=== PATIENT | male | born 1970 | race Caucasian/White ===

== ENCOUNTER 2020-02-07 17:25 | Emergency (ER) | payer OTHER, SELFPAY ==
[2020-02-07 17:27] VITALS: BP 116/82; PULSE 100; RESP 15; TEMP 37.7; O2SAT 98; BMI 25.7
[2020-02-07 17:33] VITALS: BP 116/82; PULSE 100; RESP 15; TEMP 37.7; O2SAT 98
--- NOTE | 2020-02-07 17:33 | NURSING ---
NO OLD EKGS
--- NOTE | 2020-02-07 17:40 | EKG12_ITS ---
Test Reason : CP Blood Pressure : / mmHG Vent. Rate : 099 BPM Atrial Rate : 099 BPM P-R Int : 132 ms QRS Dur : 096 ms QT Int : 362 ms P-R-T Axes : 062 072 047 degrees QTc Int : 464 ms Sinus rhythm with Premature atrial complexes Otherwise normal ECG Confirmed by MICHAEL SESAY, PRINCESS ([id number]), graphics editor MIL VITALE ([id number]) on 02/11/2020 9:22:11 AM Referred By: Confirmed By:PRINCESS RODRIGUEZ MD
--- NOTE | 2020-02-07 17:41 | ED.DCSUM_ITS ---
- ER Visit Summary Date of Service: 02/07/20 Chief Complaint: Chest pain History of Present Illness: The patient is a 49 M who presents with chest pain that began today. Patient states it is gradually gotten worse throughout the day. Patient states his pain is over the substernal area. Patient states it is worse with exertion and better with rest. Patient describes it as a tightness and sharp pain. Patient admits to some shortness of breath with the pain. Patient denies any nausea or vomiting. Patient denies any diaphoresis. Patient denies any cough. Patient does admit to a recent fever of 100.6 at home. Patient denies any lightheadedness or dizziness. Patient denies any palpitations. Patient states he did have a COVID test done on 01/27/2020 and got the results on 01/30/2020 which were negative Physical Examination: Vital signs are stable. Patient is afebrile. Patient is in no acute distress. Oral mucosa is pink and moist. Neck is supple. Trachea is midline. There is no JVD noted. Heart was regular rate and rhythm. Lungs are clear and equal bilaterally. Abdomen is soft. Bowel sounds are normal. There is no tenderness. There is no rebound or guarding noted. Skin is warm dry. Cranial nerves II through XII are intact. There are no focal motor or sensory deficits noted. Extremities are intact. There is no calf tenderness or edema. There is no erythema or warmth of the lower legs. Test Results: EKG showed a normal sinus rhythm with a rate of 99. There are occasional PACs noted. There are no acute ST or T wave changes. CBC showed a mild anemia with a hemoglobin of 12.7 and hematocrit 37.8. Basic metabolic profile was normal. Troponin was normal. D-dimer was elevated at 3.14. Portable chest x-ray was obtained. There is no acute cardiopulmonary process. Because of the elevated d-dimer, CTA of the chest was obtained. There is no evidence of pulmonary embolism. There is no infiltrate noted. These were interpreted by the radiologist and reviewed by myself. Emergency Department Course and Treatment: Patient was given aspirin and sublingual nitroglycerin here in the emergency department. Patient declined any nitroglycerin tablets here in the emergency department but did take the aspirin. Patient has a HEART score of 3. Patient was advised that this is low risk for acute cardiac event. Patient was instructed to follow-up with his primary care physician in 5 to 7 days. Patient understood and was agreeable with the plan. All questions were answered. Disposition: Discharge home Impression: Chest pain of uncertain etiology This note was generated with [employer] dictation software. It may contain incorrect words, spelling, and punctuation that were not noted in review of the chart prior to signing ED Disposition - Plan for ED Patient: Disposition: Home or Assisted Living Diagnosis: Chest pain of uncertain etiology Instructions: ED Chest Pain Atypical Unkn Cause Referrals: NOT,DEFINED [NON-STAFF] - 5-7 Days
[2020-02-07 17:42] VITALS: O2SAT 100
--- NOTE | 2020-02-07 17:45 | RAD_ITS ---
STUDY: X-RAY CHEST REASON FOR EXAM: Male, 49 years old. CHEST PAIN. NO HX OF HEART ISSUES TECHNIQUE: Single AP portable view of the chest. COMPARISON: None. FINDINGS: manager monitoring leads are present. The lungs are clear and expanded. There is no demonstrated pleural abnormality. Normal size heart. Normal mediastinum and diego. Normal visualized pulmonary arteries. Normal visualized aortic arch and descending thoracic aorta. Normal visualized thoracic spine. Normal visualized ribs, clavicles, and shoulders. There is no demonstrated abnormality of the visualized soft tissue structures of the upper abdomen. RAD/Chest 1 View (Portable) IMPRESSION: Normal x-ray examination of the chest. Electronically Signed: Tin Napier MD at 18:03 EDT , Service support ,
[2020-02-07 17:46] LABS: Absolute Lymphocyte Count 1.22 X10^3/uL (0.83-4.51); Absolute Neutrophil Count 7.2 X10^3/uL (2.0-7.7); Basophil# 0.02 X10^3/uL; Basophil% 0.2 % (0-1); Eosinophils% 2.2 % (0-5); Hematocrit 37.8 % (40-54); Hemoglobin 12.7 g/dL (13.0-16.5); Lymphocyte # 1.22 X10^3/ul (4.0); Lymphocyte % 13.1 % (19-41); Mean Corp Hgb Conc 33.6 g/dL (32-36); Mean Corpuscular Hgb 29.5 pg (27.0-32.0); Mean Corpuscular Volume 87.9 fL (80-94); Mean Platelet Vol. 8.8 fl (6.2-12.0); Monocyte# 0.65 X10^3/uL; NRBC Flagged by Analyzer 0 % (0-5); Neutrophil # 7.17 X10^3/uL (2.7-7.7); Neutrophil % 77.3 % (47-70); Platelet Count 285 K/mm3 (150-450); RBC Distribution Width CV 11.9 % (11.6-14.6); RBC Distribution Width SD 38.1 fl (35.1-43.9); White Blood Count 9.3 K/mm3 (4.4-11.0)
[2020-02-07] MEDS: Aspirin 81 MG TAB.CHEW 324 MG PO (17:46)
[2020-02-07 18:03] LABS: Anion Gap 5 (5-15); BUN 16 mg/dL (7-18); BUN/Creat Ratio 14.4 RATIO (10-20); Calcium,Total 8.5 mg/dL (8.5-10.1); Chloride 103 mmol/L (98-107); Creatinine, Serum 1.11 mg/dL (0.70-1.30); D-Dimer Quantitative (DVT/PE) 3.14 FEU/ug/m (0.27-0.49); EST Glomerular Filtration Rate 75 mL/min (>60); Est Glom Filt Rate - Afr Amer 91 mL/min (>60); Estimated Creatinine Clearance 74.24 ml/min; Glucose 107 mg/dL (74-106); Potassium 3.7 mmol/L (3.5-5.1); Sodium Level 136 mmol/L (136-145)
--- NOTE | 2020-02-07 18:05 | CT_ITS ---
STUDY: CTA CHEST REASON FOR EXAM: Male, 49 years old. ELEVATED D-DIMER, STERNAL CP WITH EXERTION RADIATION DOSAGE (If Supplied By Facility): CTDIvol = ( 12.85 ) mGy, DLP = ( 375.99 ) mGycm TECHNIQUE: The examination was performed with the intravenous administration of IV 75mL [id number]-[id number]. Post-processing of the angiographic images was performed, with multiplanar reformation and 3D reconstruction. Individualized dose optimization techniques were used for this CT. COMPARISON: Portable chest February 07, 2020 FINDINGS: Normal enhancement of the main pulmonary artery and right and left pulmonary arteries. Normal enhancement of the bilateral peripheral pulmonary arteries. There is no demonstrated pulmonary embolism. Normal thoracic aorta and visualized great vessels. There is no demonstrated aortic dissection. Heart size is normal. There is tiny focus of calcification in left coronary artery. Normal mediastinum. Normal hilar regions. Normal visualized trachea and bronchi. The lungs are well expanded. There is minor atelectasis within the dependent portion lungs. There is no focal infiltration or pulmonary nodule. Normal pleura. Normal chest wall structures. Dorsal spine demonstrates moderate spondylosis Normal visualized upper abdomen. CT/CTA Chest W/WO Contrast IMPRESSION: Minor atelectasis within the dependent portion lungs. No focal infiltration or pulmonary embolus. Minor coronary artery calcification Electronically Signed: Kahlil Faust MD at 18:50 EDT , Service support ,
[2020-02-07 19:14] VITALS: BP 107/84; PULSE 88; RESP 18; O2SAT 99
== END 2020-02-07 19:19 | disposition home or self-care (01) ==
PROVIDERS: Emergency Provider Emergency Medicine
DX: R07.9 Chest pain, unspecified (principal); R79.89 Other specified abnormal findings of blood chemistry; R50.9 Fever, unspecified; R06.02 Shortness of breath
CPT/HCPCS: 71045; 71275; 80048; 84484; 85025; 85379; 93005; 99285; J7030; Q9967; A4216